=== PATIENT | male | born 1990 | race Caucasian/White ===

== ENCOUNTER 2017-03-18 19:59 | Emergency (ER) | payer SELFPAY ==
[~2017-03-18] VITALS: Ht 180.3 cm; Wt 68.0 kg
[2017-03-18 20:03] VITALS: BP 144/86; PULSE 88; RESP 16; TEMP 98.3; O2SAT 100
[2017-03-18 20:10] VITALS: RESP 18; O2SAT 99
[2017-03-18] MEDS ORDERED: SODIUM CHLOR 0.9% 1000 ML INJ 1,000 ML IV SCH (20:10)
[2017-03-18] MEDS ORDERED: methylPREDNISolone SOD SUCC 125 MG/2 ML VIAL IV PUSH ONE (20:15)
[2017-03-18] MEDS ORDERED: SODIUM CHLORIDE 0.9% FLUSH 10 ML FLUSH IV FLUSH PRN (20:15)
[2017-03-18] MEDS ORDERED: EPINEPHrine HCL (1:1000) 1 MG/ML VIAL IM ONE (20:15)
[2017-03-18] MEDS ORDERED: FAMOTIDINE 20 MG/2 ML VIAL IV PUSH ONE (20:15)
[2017-03-18] MEDS ORDERED: diphenhydrAMINE HCL 50 MG/ML VIAL IVP ONE (20:15)
[2017-03-18 20:16] VITALS: BP 144/86; PULSE 75
--- NOTE | 2017-03-18 20:20 | PD ---
HPI Chief Complaint: Allergic/Adverse Reaction Time Seen by Provider: 20:04 Travel History International Travel<30 days: No Contact w/Intl Traveler<30days: No Traveled to known affect area: No History of Present Illness HPI This patient is complaining of allergic reaction. He was eating eggs and potatoes that had tumeric on them. He started to get hives and developed a diffuse itchy rash on his torso and upper extremities. He developed swelling of his upper and lower lip. He arrives to the emergency room critically ill with a serious allergic reaction. Duration 30 minutes. Severity is severe. No alleviating factors. No exacerbating factors known. PFSH Past Medical History Asthma: No Autoimmune Disease: No Depression: Yes Cancer: No Cardiovascular Problems: No Chemotherapy: Yes COPD: No Endocrine: No Genitourinary: No Immune Disorder: No Implanted Vascular Access Dvce: No Musculoskeletal: No Neurologic: No Psychiatric: No Reproductive: No Respiratory: Yes (pt has a prior left pneumo with chest tubes.) Sickle Cell Disease: No Sleep Apnea: No Past Surgical History Abdominal Surgery: Yes (INGUAL HERNIA) Cardiac Surgery: No Ear Surgery: No Endocrine Surgery: No Eye Surgery: No Genitourinary Surgery: No Gynecologic Surgery: No Oral Surgery: No Thoracic Surgery: Yes (CHEST TUBE LEFT ) Other Surgery: Yes Social History Alcohol Use: Yes Tobacco Use: No Substance Use: No Allergies-Medications (Allergen,Severity, Reaction): Uncoded Allergies: TUMARIC (Allergy, Severe, HIVES, 03/18/17) Reported Meds & Prescriptions Reported Meds & Active Scripts Active Prednisone 20 Mg Tab 40 Mg PO DAILY Take 40 mg (2 tablets) daily for 5 days Review of Systems General / Constitutional: No: Fever Eyes: No: Visual changes HENT: Positive: Lightheadedness, No: Headaches Cardiovascular: Positive: Diaphoresis, No: Chest Pain or Discomfort Respiratory: No: Shortness of Breath Gastrointestinal: No: Abdominal Pain Genitourinary: No: Dysuria Musculoskeletal: Positive: Weakness, No: Pain Skin: Positive Rash, Positive Itching, Positive Hives Neurologic: Positive: Weakness Psychiatric: No: Depression Endocrine: No: Polydipsia Hematologic/Lymphatic: No: Easy Bruising Physical Exam Narrative GENERAL: Well-nourished, well-developed patient with severe allergic reaction . SKIN: Focused skin assessment reveals urticaria in the axilla and upper extremities. He has a fine erythematous rash over the torso. Skin is warm and diaphoretic HEAD: Atraumatic. Normocephalic. EYES: Pupils equal and round. No scleral icterus. No injection or drainage. ENT: No nasal bleeding or discharge. Mucous membranes pink and moist. He has some swelling of both upper and lower lip. Uvula is midline without swelling NECK: Trachea midline. No JVD. CARDIOVASCULAR: Regular rate and rhythm. No murmur appreciated. RESPIRATORY: No accessory muscle use. Clear to auscultation. Breath sounds equal bilaterally. GASTROINTESTINAL: Abdomen soft, non-tender, nondistended. Hepatic and splenic margins not palpable. MUSCULOSKELETAL: No obvious deformities. No clubbing. No cyanosis. No edema. NEUROLOGICAL: Awake and alert. No obvious cranial nerve deficits. Motor grossly within normal limits. Normal speech. PSYCHIATRIC: Appropriate mood and affect; insight and judgment normal. Data Data Last Documented VS Vital Signs Date Time Temp Pulse Resp B/P (MAP) Pulse Ox O2 Delivery O2 Flow Rate FiO2 03/18/17 20:16 75 144/86 03/18/17 20:10 18 99 Room Air 03/18/17 20:03 98.3 Orders Orders Basic Metabolic Panel (Bmp) (03/18/17 20:10) Complete Blood Count With Diff (03/18/17 20:10) Ecg Monitoring (03/18/17 20:10) Iv Access Insert/Monitor (03/18/17 20:10) Oximetry (03/18/17 20:10) Diphenhydramine Inj (Benadryl Inj) (03/18/17 20:15) Methylprednisolone So Succ Inj (Solumedr (03/18/17 20:15) Famotidine Inj (Pepcid Inj) (03/18/17 20:15) Sodium Chlor 0.9% 1000 Ml Inj (Ns 1000 M (03/18/17 20:10) Sodium Chloride 0.9% Flush (Ns Flush) (03/18/17 20:15) Epinephrine (1:1000) Inj (Adrenalin (1:1 (03/18/17 20:15) Labs Laboratory Tests Test 03/18/17 20:05 White Blood Count 10.1 TH/MM3 Red Blood Count 6.02 MIL/MM3 Hemoglobin 16.4 GM/DL Hematocrit 49.5 % Mean Corpuscular Volume 82.2 FL Mean Corpuscular Hemoglobin 27.2 PG Mean Corpuscular Hemoglobin Concent 33.1 % Red Cell Distribution Width 12.3 % Platelet Count 431 TH/MM3 Mean Platelet Volume 6.3 FL Neutrophils (%) (Auto) 51.8 % Lymphocytes (%) (Auto) 37.2 % Monocytes (%) (Auto) 8.7 % Eosinophils (%) (Auto) 1.8 % Basophils (%) (Auto) 0.5 % Neutrophils # (Auto) 5.2 TH/MM3 Lymphocytes # (Auto) 3.7 TH/MM3 Monocytes # (Auto) 0.9 TH/MM3 Eosinophils # (Auto) 0.2 TH/MM3 Basophils # (Auto) 0.1 TH/MM3 CBC Comment DIFF FINAL Differential Comment Blood Urea Nitrogen 14 MG/DL Creatinine 0.95 MG/DL Random Glucose 105 MG/DL Calcium Level 8.7 MG/DL Sodium Level 137 MEQ/L Potassium Level 3.6 MEQ/L Chloride Level 102 MEQ/L Carbon Dioxide Level 26.4 MEQ/L Anion Gap 9 MEQ/L Estimat Glomerular Filtration Rate 94 ML/MIN MDM Medical Decision Making Medical Screen Exam Complete: Yes Emergency Medical Condition: Yes Medical Record Reviewed: Yes Differential Diagnosis Allergic reaction, anaphylaxis, vasovagal episode Narrative Course I have reviewed the patient's electronic medical record. Patient's been here twice before for pneumothorax This patient arrives critically ill. Aggressive measures were taken for allergic reaction given the swelling near Airway structures. IV placed I gave him intramuscular epinephrine in the thigh He then received IV Solu-Medrol and IV Benadryl and IV Pepcid I gave him 1 L normal saline IV bolus Extended cardiac monitoring reveals sinus rhythm without ectopy CBC is normal Metabolic profile is normal Shortly after arrival the patient developed what looked like a vasovagal episode. He was very diaphoretic and became bradycardic down to a heart rate of 40 Bradycardia was able to be resolved without specific treatment Patient gradually improved from severe reaction Multiple rechecks were done On final recheck his lip swelling is resolved and his hives are mostly gone and his itching is gone I wrote him 5 days of prednisone Critical Care Narrative Aggregate critical care time was 36 minutes. Time to perform other separately billable procedures was not included in the critical care time. My time did not include minutes spent treating any other patients simultaneously or on activities that did not directly contribute to the patient's treatment. The services I provided to this patient were to treat and/or prevent clinically significant deterioration that could result in: Loss of airway, cardiopulmonary arrest, anaphylactic shock I provided critical care services requiring my management, as noted below: Chart data review, documentation time, medication orders and management, vital sign assessments/reviewing monitor data, ordering and reviewing lab tests, ordering and interpreting/reviewing x-rays and diagnostic studies, care of the patient and discussion of the patient with the admitting physicians. Diagnosis Primary Impression: Severe allergic reaction Qualified Codes: T78.40XA - Allergy, unspecified, initial encounter Additional Instructions: The patient was advised to follow up with their physician and return if they worsen. Med/Other Pt SpecificInfo: Prescription(s) given Scripts Prednisone (Prednisone) 20 Mg Tab 40 MG PO DAILY, #10 TAB 0 Refills Take 40 mg (2 tablets) daily for 5 days Prov: Winston Melton MD 03/18/17 Disposition: 01 DISCHARGE HOME Condition: Stable Winston Melton MD Mar 18, 2017 20:20
[2017-03-18 20:38] LABS: AUTOMATED NEUTROPHIL # 5.2 TH/MM3 (1.8-7.7); BASOPHIL # 0.1 TH/MM3 (0-0.2); BASOPHIL % 0.5 % (0.0-2.0); EOSINOPHIL # 0.2 TH/MM3 (0-0.4); EOSINOPHIL % 1.8 % (0.0-4.0); HEMATOCRIT 49.5 % (39.0-51.0); HEMOGLOBIN 16.4 GM/DL (13.0-17.0); LYMPH % 37.2 % (9.0-44.0); LYMPHOCYTE # 3.7 TH/MM3 (1.0-4.8); MEAN CELL VOLUME 82.2 FL (80.0-100.0); MEAN CORPUSCULAR HEMOGLOBIN 27.2 PG (27.0-34.0); MEAN CORPUSCULAR HGB CONC 33.1 % (32.0-36.0); MEAN PLATELET VOLUME 6.3 FL (7.0-11.0); MONO % 8.7 % (0.0-8.0); MONOCYTE # 0.9 TH/MM3 (0-0.9); NEUT % 51.8 % (16.0-70.0); PLATELET COUNT 431 TH/MM3 (150-450); RED BLOOD COUNT 6.02 MIL/MM3 (4.50-5.90); RED CELL DISTRIBUTION WIDTH 12.3 % (11.6-17.2); WHITE BLOOD COUNT 10.1 TH/MM3 (4.0-11.0)
[2017-03-18 20:47] LABS: CALCIUM 8.7 MG/DL (8.5-10.1)
[2017-03-18 20:48] LABS: BICARBONATE 26.4 MEQ/L (21.0-32.0)
[2017-03-18 20:51] LABS: CREATININE 0.95 MG/DL (0.60-1.30)
[2017-03-18] MEDS ORDERED: PRED20 PO (21:35)
== END 2017-03-18 22:02 | disposition home or self-care (01) ==
LOC: PHED 19:59
DX: T78.40XA Allergy, unspecified, initial encounter (principal); R22.0 Localized swelling, mass and lump, head; L50.9 Urticaria, unspecified; R00.1 Bradycardia, unspecified; F32.9 Major depressive disorder, single episode, unspecified; Z79.899 Other long term (current) drug therapy
CPT/HCPCS: 80048; 85025; 96361; 96372; 96374; 96375; 99291; J0171; J1200; J2930; J7030